=== PATIENT | female | born 1985 | race Caucasian/White ===

== ENCOUNTER 2023-06-07 11:24 | Emergency (ER) | payer OTHER ==
[2023-06-07 12:51] LABS: #Basophils 0.1 10x3/uL (0.0-0.2); #Eosinphils 0.1 10x3/uL (0.0-0.5); #Monocytes 0.7 10x3/uL (0.0-1.1); #Neutrophils 5.3 10x3/uL (1.5-8.4); %Basophils 0.9 % (0.0-2.0); %Eosinophils 1.5 % (0.0-6.0); %Lymphocytes 27.9 % (18.0-47.0); %Monocytes 8.4 % (0.0-10.0); %Neutrophils 61.1 % (40.0-75.0); Hemoglobin 13.3 g/dL (12.0-15.5); Mean Corpuscular HGB CONC 32.3 g/dL (32.0-36.0); Mean Corpuscular Hemoglobin 27.4 pg (27.0-33.0); Mean Corpuscular Volume 84.8 fl (81.6-98.3); Mean Platelet Volume 8.8 fl (7.4-10.4); Platelet Count 286 10x3/uL (150-450); RBC Distribution Width 13.2 % (11.5-14.5); Red Blood Cell (RBC) Count 4.86 10x6/uL (3.90-5.03); White Blood Cell (WBC) Count 8.7 10x3/uL (3.5-10.5)
[2023-06-07] MEDS ORDERED: Prochlorperazine 10 MG/2 ML VIAL ONE (12:53)
[2023-06-07] MEDS ORDERED: diphenhydrAMINE 50 MG/ML VIAL ONE (12:53)
[2023-06-07 12:57] LABS: BHCG - Serum Negative (NEGATIVE); Pregs Control Background? CLEAR/WHITE (CLR/WHITE); Pregs Control Bar Appear? YES (CONTROL BAR)
[2023-06-07 13:04] LABS: ALT (SGPT) 24 U/L (8-55); AST (SGOT) 20 U/L (5-34); Albumin 4.1 g/dL (3.5-5.0); Alkaline Phosphatase 53 U/L (40-110); Anion Gap 16 mmol/L (10-20); BUN (Urea Nitrogen) 13 mg/dL (7.0-18.7); Bilirubin, Total 0.3 mg/dL (0.2-1.2); Calc. Creatinine Clearance 0 mL/min (70-130); Calcium 8.8 mg/dL (7.8-10.44); Carbon Dioxide 22 mmol/L (22-29); Chloride 102 mmol/L (98-107); Estimated GFR 113; Globulin 3.3 g/dL (2.4-3.5); Glucose 101 mg/dL (70-105); Protein, Total 7.4 g/dL (6.0-8.3); Sodium 136 mmol/L (136-145)
[2023-06-07 13:08] LABS: Bilirubin Neg (Negative); Blood, Urine 10 (Negative); Clarity Slightly Cloudy (Clear); Glucose, Urine (Dipstick) Normal (Negative); Ketone, Urine 15 mg/dL (Negative); Leukocyte Negative (Negative); Nitrite Negative (Negative); Protein, Urine (Dipstick) 30 mg/dl (Neg-Trace); Urobilinogen Normal mg/dL (Less than 2)
[2023-06-07 13:16] LABS: CAUTI Indications for Culture Dysuria,urgency,freq; RBC/HPF 0-3 HPF (0-3); Squamous Epithelial 0-3 HPF (0-3); WBC/HPF 0-3 HPF (0-3)
[2023-06-07 13:17] LABS: Bacteria/HPF 2+ HPF (None Seen); Mucous/LPF 2+ LPF (<2+); Urine Culture Reflex No No
[2023-06-07] MEDS ORDERED: Dexamethasone 10 MG/ML VIAL ONE (14:25)
[2023-06-07] MEDS ORDERED: Ketorolac Tromethamine 30 MG/ML VIAL ONE (14:26)
== END 2023-06-07 14:30 | disposition home or self-care (01) ==
LOC: CSHERS 11:24
DX: R51.9 Headache, unspecified (principal)
CPT/HCPCS: 70450; 80053; 81001; 84703; 85025; 93005; 96365; 96366; 96375; J0780; J1100; J1200; J1885

== ENCOUNTER 2023-06-25 16:33 | Emergency (ER) | payer OTHER | END 2023-06-25 20:55 | disposition home or self-care (01) | LOC: CSHERS 16:33 | DX: I80.02 Phlebitis and thrombophlebitis of superficial vessels of left lower extremity (principal); E03.9 Hypothyroidism, unspecified ==

== ENCOUNTER 2024-10-22 10:49 | Outpatient (CLI) | payer OTHER | END 2024-10-22 10:50 | disposition home or self-care (01) | LOC: CSHRAD 10:49 | PROVIDERS: ATTEND Family Medicine | DX: M54.50 Low back pain, unspecified (principal) | CPT/HCPCS: 72100 ==

== ENCOUNTER 2025-01-01 09:45 | Emergency (ER) | payer OTHER ==
[2025-01-01] MEDS ORDERED: Ketorolac Tromethamine 30 MG (1 mL) VIAL ONE (10:19)
[2025-01-01 10:46] LABS: #Basophils 0.13 10x3/uL (0.0-0.2); #Eosinophils 0.17 10x3/uL (0.0-0.5); #Monocytes 1.14 10x3/uL (0.0-1.1); #Neutrophils 6.76 10x3/uL (1.5-8.4); %Basophils 0.9 % (0.0-2.0); %Eosinophils 1.2 % (0.0-6.0); %Monocytes 8.1 % (0.0-10.0); %Neutrophils 48.4 % (40.0-75.0); Hematocrit 40.6 % (34.9-44.5); Hemoglobin 12.8 g/dL (12.0-15.5); Mean Corpuscular HGB CONC 31.5 g/dL (32.0-36.0); Mean Corpuscular Hemoglobin 27.6 pg (27.0-33.0); Mean Corpuscular Volume 87.7 fL (81.6-98.3); Mean Platelet Volume 8.6 fL (7.4-10.4); Platelet Count 345 10x3/uL (150-450); RBC Distribution Width 13.2 % (11.5-14.5); Red Blood Cell (RBC) Count 4.63 10x6/uL (3.90-5.03)
[2025-01-01 11:00] LABS: ALT (SGPT) 15 U/L (Less than 34); AST (SGOT) 19 U/L (11-34); Albumin 3.8 g/dL (3.1-4.5); Alkaline Phosphatase 51 U/L (40-110); Anion Gap 13 mmol/L (10-20); BUN (Urea Nitrogen) 23 mg/dL (7.0-18.7); Bilirubin, Total 0.3 mg/dL (0.3-1.2); Calc. Creatinine Clearance 0 mL/min (70-130); Calcium 9.3 mg/dL (7.8-10.44); Carbon Dioxide 23 mmol/L (22-29); Chloride 106 mmol/L (98-107); Estimated GFR 113; Globulin 3.6 g/dL (2.4-3.5); Glucose 99 mg/dL (70-105); Potassium 3.8 mmol/L (3.5-5.1); Protein, Total 7.4 g/dL (6.0-8.3); Sodium 138 mmol/L (136-145)
[2025-01-01 11:01] LABS: BHCG - Serum Negative (NEGATIVE); Pregs Control Background? CLEAR/WHITE (CLR/WHITE); Pregs Control Bar Appear? YES (CONTROL BAR)
[2025-01-01] MEDS ORDERED: Iopamidol 300 61% 100 ML VIAL FS ONE (13:54)
== END 2025-01-01 11:53 | disposition home or self-care (01) ==
LOC: CSHERS 09:45
DX: J02.9 Acute pharyngitis, unspecified (principal); R51.9 Headache, unspecified
CPT/HCPCS: 70491; 80053; 84703; 85025; 96374; J1885

== ENCOUNTER 2025-06-09 23:24 | Emergency (ER) | payer OTHER ==
[2025-06-10 00:07] LABS: #Basophils 0.09 10x3/uL (0.0-0.2); #Eosinophils 0.19 10x3/uL (0.0-0.5); #Monocytes 0.84 10x3/uL (0.0-1.1); #Neutrophils 7.74 10x3/uL (1.5-8.4); %Basophils 0.7 % (0.0-2.0); %Eosinophils 1.5 % (0.0-6.0); %Lymphocytes 28.8 % (18.0-47.0); %Monocytes 6.7 % (0.0-10.0); %Neutrophils 62.1 % (40.0-75.0); Hematocrit 38.8 % (34.9-44.5); Hemoglobin 12.6 g/dL (12.0-15.5); Mean Corpuscular Hemoglobin 28.3 pg (27.0-33.0); Mean Corpuscular Volume 87.0 fL (81.6-98.3); Platelet Count 339 10x3/uL (150-450); Red Blood Cell (RBC) Count 4.46 10x6/uL (3.90-5.03); White Blood Cell (WBC) Count 12.49 10x3/uL (3.5-10.5)
[2025-06-10] MEDS ORDERED: Tranexamic Acid 1,000 MG/10 ML VIAL ONE (00:11)
[2025-06-10 00:16] LABS: ALT (SGPT) 15 U/L (Less than 34); AST (SGOT) 16 U/L (11-34); Albumin 3.9 g/dL (3.1-4.5); Alkaline Phosphatase 52 U/L (40-110); Anion Gap 16 mmol/L (10-20); BUN (Urea Nitrogen) 16 mg/dL (7.0-18.7); Bilirubin, Total 0.5 mg/dL (0.3-1.2); Calc. Creatinine Clearance 0 mL/min (70-130); Calcium 9.2 mg/dL (7.8-10.44); Carbon Dioxide 24 mmol/L (22-29); Chloride 101 mmol/L (98-107); Globulin 3.9 g/dL (2.4-3.5); Glucose 123 mg/dL (70-105); Potassium 3.6 mmol/L (3.5-5.1); Sodium 137 mmol/L (136-145)
[2025-06-10] MEDS ORDERED: Iopamidol 300 61% 100 ML VIAL FS ONE (13:38)
== END 2025-06-10 01:42 | disposition home or self-care (01) ==
LOC: CSHERS 23:24
DX: J95.830 Postprocedural hemorrhage of a respiratory system organ or structure following a respiratory system procedure (principal)
CPT/HCPCS: 70491; 80053; 85025; 96374; Q9967